=== PATIENT | female | born 2000 | race African-American/Black ===

== ENCOUNTER 2022-07-30 03:31 | Emergency (ER) | payer BC, MEDICAID ==
[2022-07-30 04:08] LABS: Pregnancy Test - Urine (BHCG) Negative (Negative); Pregu Control Background? CLEAR/WHITE (CLR/WHITE); Pregu Control Bar Appear? YES (CONTROL BAR)
[2022-07-30] MEDS ORDERED: Ketorolac Tromethamine 30 MG/ML VIAL ONE (04:14)
== END 2022-07-30 04:46 | disposition home or self-care (01) ==
LOC: MADERS 03:31
DX: S16.1XXA Strain of muscle, fascia and tendon at neck level, initial encounter (principal); X58.XXXA Exposure to other specified factors, initial encounter
CPT/HCPCS: 81025; 96372; 99283; J1885